=== PATIENT | female | born 1930 | race Two or more races ===

== ENCOUNTER 2018-12-04 12:44 | Inpatient (IN) | payer MEDICARE, OTHER ==
[~2018-12-04] VITALS: Ht 154.9 cm; Wt 46.8 kg
[2018-12-04] MEDS ORDERED: BUSP5TAB PO (15:17)
[2018-12-04] MEDS ORDERED: SPIR25TA PO (15:17)
[2018-12-04] MEDS ORDERED: CHOL500016 PO (15:46)
[2018-12-04] MEDS ORDERED: HYDR-2869 PO (15:46)
[2018-12-04] MEDS ORDERED: LORA2ORA8 PO (15:46)
[2018-12-04] MEDS ORDERED: DOCU-109 PO (15:46)
[2018-12-04] MEDS ORDERED: CHOL2000 PO (15:46)
[2018-12-04] MEDS ORDERED: TRAM50TA PO ×2 (15:46)
[2018-12-04] MEDS ORDERED: LISI10TA2 PO (15:46)
[2018-12-04] MEDS ORDERED: IBUP400T18 PO (15:46)
[2018-12-04] MEDS ORDERED: LORA0.5T PO (15:46)
[2018-12-04] MEDS ORDERED: ACET325T9 PO (15:46)
[2018-12-04] MEDS ORDERED: CYAN10002 IM ×3 (16:01)
[2018-12-04 16:26] VITALS: BP 124/66
[2018-12-04] MEDS ORDERED: ACETAMINOPHEN 325 MG TABLET PO PRN ×2 (17:00→17:15)
[2018-12-04] MEDS ORDERED: traMADol 50 MG TABLET PO PRN (17:00)
[2018-12-04] MEDS ORDERED: MAGNESIUM HYDROXIDE 2,400 MG/30 ML ORAL.SUSP. PO PRN (17:15)
[2018-12-04] MEDS ORDERED: MAG HYDROX/AL HYDROX/SIMETH 30 ML ORAL.SUSP PO PRN (17:15)
[2018-12-04] MEDS ORDERED: METHYL SALICYLATE/MENTHOL TOPICAL OINTMENT 29GM TUBE. TP PRN (17:15)
[2018-12-04] MEDS ORDERED: IBUPROFEN 200 MG TABLET PO PRN (17:15)
[2018-12-04] MEDS ORDERED: DOCUSATE SODIUM 100 MG CAPSULE PO PRN (17:15)
[2018-12-04] MEDS ORDERED: LORazepam INTENSOL 2 MG/ML BOTTLE SL PRN (18:00)
--- NOTE | 2018-12-04 18:16 | EKG ---
[address] [address] Test Date: 2018-12-04 Test Time: 17:59:12 Pat Name: NATANAEL NAYLOR Department: Room: [address] [place] [address] Gender: F [employer] Principal: : [id number] Requested By: LEIGH ANN KIRBY Order Number: [id number] Reading MD: Measurements Intervals [place] Rate: 73 P: 4 NH: 176 QRS: 62 QRSD: 156 T: 46 QT: 430 QTc: 478 Interpretive Statements SINUS RHYTHM NON SPECIFIC INTRAVENTRICULAR BLOCK QRS(T) CONTOUR ABNORMALITY CONSISTENT WITH ANTERIOR INFARCT PROBABLY OLD ABNORMAL ECG RI6.02 No previous ECG available for comparison
[2018-12-04] MEDS: traMADol 50 MG TABLET PO SCH (20:11)
[2018-12-04] MEDS: LORazepam 1 MG TABLET PO SCH (20:12)
[2018-12-04] MEDS: busPIRone 5 MG TABLET. PO SCH (20:12)
[2018-12-04 22:01] LABS: BACTERIA,URINE 0 /HPF (0-FEW); BILIRUBIN,URINE NEG (NEG); CLARITY,URINE CLOUDY; COLOR,URINE AMBER; GLUCOSE,URINE NEG (NEG); HYALINE CASTS, URINE OCC /HPF; NITRITE,URINE NEG (NEG); RBC,URINE 0 /HPF (0-2); SQUAMOUS EPITHELIAL CELL,UR OCC /LPF; UROBILINOGEN,URINE 4 mg/dL (0.2 mg/dL); WBC,URINE 0 /HPF (0-4)
--- NOTE | 2018-12-04 22:31 | PDOC ---
Exam Note: Bassam Note: Please also refer to the separate dictated note~for this date of service dictated separately. Discussed with Nursing staff reviewed the chart.~Reviewed interim history and current functioning. Reviewed vital signs,~Labs/ Radiology~and current medications noted below. Continue current treatment with the changes noted in the dictated addendum note Assessment: Vital Signs/I&O: Vital Signs Date Time Temp Pulse Resp B/P (MAP) Pulse Ox O2 Delivery O2 Flow Rate FiO2 12/04/18 20:12 69 124/66 12/04/18 20:11 18 Room Air 12/04/18 16:26 98.0 93 Labs: Laboratory Tests Test 12/04/18 21:41 Urine Collection Type Unknown Urine Color Adriana Urine Clarity Cloudy Urine pH 5.5 Urine Specific [place] >=1.030 Urine Protein 30 mg/dl (NEG-TRACE) Urine Glucose (UA) Neg mg/dL (NEG) Urine Ketones (Stick) 15 mg/dL (NEG) Urine Blood Neg (NEG) Urine Nitrite Neg (NEG) Urine Bilirubin Neg (NEG) Urine Urobilinogen Dipstick 4 mg/dL (0.2 mg/dL) Urine Leukocyte Esterase Neg (NEG) Urine RBC 0 /HPF (0-2) Urine WBC 0 /HPF (0-4) Urine Squamous Epithelial Cells Occ /LPF Urine Bacteria 0 /HPF (0-FEW) Urine Hyaline Casts Occ /HPF Urine Mucus Slight /LPF Current Medications: Meds: Current Medications Medications (Trade) Dose Ordered Sig/Chilo Route PRN Reason Start Time Stop Time Status Last Admin Dose Admin Tramadol HCl (Ultram) 50 mg BID PO 12/04/18 21:00 12/04/18 20:11 Hydralazine HCl (Apresoline) 50 mg TID PO 12/04/18 21:00 12/04/18 20:12 Buspirone HCl (Buspar) 5 mg TID PO 12/04/18 21:00 12/04/18 20:12 Lorazepam (Ativan) 1 mg BID PO 12/04/18 21:00 12/04/18 20:12 I have reviewed the current psychotropics carefully including drug interactions. Risk benefit ratio favors no change other than as noted in my dictated progress note. Diagnosis: Problems: (1) Anxiety disorder (2) Dementia, vascular, with delusions (3) Dementia, vascular, with depression (4) Dementia in Alzheimer's disease with delusions (5) Dementia in Alzheimer's disease with depression (6) Impulse control disorder LEIGH ANN KIRBY MD Dec 04, 2018 22:31
[2018-12-05 06:05] VITALS: BP 105/64
[2018-12-05 07:37] LABS: BASO # 0.1 x10^3/uL (0.0-0.2); BASO % 1 % (0-3); EOS # 0.7 x10^3/uL (0.0-0.7); EOS % 7 % (0-3); HEMATOCRIT 31.6 % (36.0-47.0); HEMOGLOBIN 10.3 g/dL (12.0-15.5); LYMPH # 3.2 x10^3/uL (1.0-4.8); LYMPH % 32 % (24-48); MEAN CORPUSCULAR HEMOGLOBIN 30 pg (25-35); MEAN CORPUSCULAR HGB CONC 33 g/dL (31-37); MEAN CORPUSCULAR VOLUME 91 fL (79-100); MONO # 1.1 x10^3/uL (0.0-1.1); MONO % 11 % (0-9); NEUT % 50 % (31-73); PLATELET COUNT 264 x10^3/uL (140-400); RED BLOOD COUNT 3.47 x10^6/uL (3.50-5.40); RED CELL DISTRIBUTION WIDTH 14.9 % (11.5-14.5); WHITE BLOOD COUNT 10.1 x10^3/uL (4.0-11.0)
[2018-12-05 07:42] LABS: ALBUMIN 2.9 g/dL (3.4-5.0); ALBUMIN/GLOBULIN RATIO 0.9 (1.0-1.7); CALCIUM 8.8 mg/dL (8.5-10.1); CREATININE 0.7 mg/dL (0.6-1.0); GFR 79.3; MAGNESIUM 1.7 mg/dL (1.8-2.4); POTASSIUM 3.8 mmol/L (3.5-5.1); TOTAL BILIRUBIN 0.3 mg/dL (0.2-1.0)
[2018-12-05] MEDS: CYANOCOBALAMIN (VITAMIN B-12) 1,000 MCG/ML VIAL IM SCH ×2 (09:00→09:14)
[2018-12-05] MEDS: LISINOPRIL 10 MG TABLET PO SCH (09:13)
[2018-12-05] MEDS: CHOLECALCIFEROL (VITAMIN D3) 1,000 UNIT TABLET PO SCH (09:14)
[2018-12-05] MEDS: busPIRone 5 MG TABLET. PO SCH ×3 (09:14→20:54)
[2018-12-05] MEDS: SPIRONOLACTONE 25 MG TABLET PO SCH (09:15)
[2018-12-05] MEDS: LORazepam 1 MG TABLET PO SCH (09:18)
[2018-12-05] MEDS: traMADol 50 MG TABLET PO SCH ×2 (09:18→20:54)
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
--- NOTE | 2018-12-05 15:31 | RAD ---
Examination: CT HEAD WO CONTRAST History: Mental status change Comparison/Correlation: None Findings: Atrophy is present. Ventriculomegaly is present and may represent volume loss. No intracranial hemorrhage, midline shift, or mass effect. Old left external capsular lacunar small old lacunar infarct involving the left basal ganglia near the genu is evident. Cavernous carotid calcifications noted. No depressed fracture. No bony destruction. Impression: Ventriculomegaly which may represent volume loss. Correlate for possibly normal pressure hydrocephalus. PQRS Compliance Statement: One or more of the following individualized dose reduction techniques were utilized for this examination: 1. Automated exposure control 2. Adjustment of the mA and/or kV according to patient size 3. Use of iterative reconstruction technique Electronically signed by: Ho Jack MD (12/05/2018 3:28 PM) [facility]
[2018-12-05 15:37] LABS: THYROID STIM HORMONE (TSH) 4.342 uIU/mL (0.358-3.740)
[2018-12-05 16:05] VITALS: BP 148/81
[2018-12-05] MEDS: LORazepam INTENSOL 2 MG/ML BOTTLE SL PRN (17:01)
[2018-12-05] MEDS ORDERED: METHENAMINE PO PRN (20:00)
[2018-12-05] MEDS ORDERED: SODIUM SALICYLATE PO PRN (20:00)
[2018-12-05] MEDS ORDERED: ABH TP (20:12)
[2018-12-05] MEDS ORDERED: METH1TAB PO (20:14)
[2018-12-05] MEDS: LORazepam 0.5 MG TABLET PO SCH (20:54)
[2018-12-05 21:11] LABS: THYROXINE 7.1 ug/dL (4.5-12.0)
--- NOTE | 2018-12-05 22:33 | PDOC ---
Exam Note: Bassam Note: Please also refer to the separate dictated note~for this date of service dictated separately.~Patient seen individually. Discussed the patient with Nursing staff reviewed the chart.~Reviewed interim history and current functioning. Reviewed vital signs,~Labs/ Radiology~and current medications noted below. Continue current treatment with the changes noted in the dictated addendum note Assessment: Vital Signs/I&O: Vital Signs Date Time Temp Pulse Resp B/P (MAP) Pulse Ox O2 Delivery O2 Flow Rate FiO2 12/05/18 20:54 72 148/81 12/05/18 20:54 18 Room Air 12/05/18 16:05 97.8 95 I & O 12/04/18 12/04/18 12/05/18 14:59 22:59 06:59 Intake Total 420 ml Balance 420 ml Labs: Laboratory Tests Test 12/05/18 06:50 White Blood Count 10.1 x10^3/uL (4.0-11.0) Red Blood Count 3.47 x10^6/uL (3.50-5.40) L Hemoglobin 10.3 g/dL (12.0-15.5) L Hematocrit 31.6 % (36.0-47.0) L Mean Corpuscular Volume 91 fL (79-100) Mean Corpuscular Hemoglobin 30 pg (25-35) Mean Corpuscular Hemoglobin Concent 33 g/dL (31-37) Red Cell Distribution Width 14.9 % (11.5-14.5) H Platelet Count 264 x10^3/uL (140-400) Neutrophils (%) (Auto) 50 % (31-73) Lymphocytes (%) (Auto) 32 % (24-48) Monocytes (%) (Auto) 11 % (0-9) H Eosinophils (%) (Auto) 7 % (0-3) H Basophils (%) (Auto) 1 % (0-3) Neutrophils # (Auto) 5.0 x10^3uL (1.8-7.7) Lymphocytes # (Auto) 3.2 x10^3/uL (1.0-4.8) Monocytes # (Auto) 1.1 x10^3/uL (0.0-1.1) Eosinophils # (Auto) 0.7 x10^3/uL (0.0-0.7) Basophils # (Auto) 0.1 x10^3/uL (0.0-0.2) Sodium Level 141 mmol/L (136-145) Potassium Level 3.8 mmol/L (3.5-5.1) Chloride Level 105 mmol/L (98-107) Carbon Dioxide Level 27 mmol/L (21-32) Anion Gap 9 (6-14) Blood Urea Nitrogen 24 mg/dL (7-20) H Creatinine 0.7 mg/dL (0.6-1.0) Estimated GFR (Cockcroft-Gault) 79.3 BUN/Creatinine Ratio 34 (6-20) H Glucose Level 84 mg/dL (70-99) Calcium Level 8.8 mg/dL (8.5-10.1) Magnesium Level 1.7 mg/dL (1.8-2.4) L Iron Level 47 ug/dL (50-170) L Total Iron Binding Capacity 153 ug/dL (250-450) L Iron Saturation 31 % (15-34) Total Bilirubin 0.3 mg/dL (0.2-1.0) Aspartate Amino Transferase (AST) 11 U/L (15-37) L Alanine Aminotransferase (ALT) 17 U/L (14-59) Alkaline Phosphatase 44 U/L (46-116) L Total Protein 6.0 g/dL (6.4-8.2) L Albumin 2.9 g/dL (3.4-5.0) L Albumin/Globulin Ratio 0.9 (1.0-1.7) L Triglycerides Level 54 mg/dL (0-150) Cholesterol Level 164 mg/dL (0-200) LDL Cholesterol, Calculated 113 mg/dL (0-100) H VLDL Cholesterol, Calculated 10 mg/dL (0-40) Non-HDL Cholesterol Calculated 123 mg/dL (0-129) HDL Cholesterol 41 mg/dL (40-60) Cholesterol/HDL Ratio 4.0 25-Hydroxy Vitamin D Total 21.7 ng/mL (30-100) L Thyroid Stimulating Hormone (TSH) 4.342 uIU/mL (0.358-3.740) Thyroxine (T4) 7.1 ug/dL (4.5-12.0) Total Triiodothyronine (TT3) 89 ng/dL (71-180) Treponema pallidum Antibody Nonreactive (Nonreactive) Current Medications: Meds: Current Medications Medications (Trade) Dose Ordered Sig/Chilo Route PRN Reason Start Time Stop Time Status Last Admin Dose Admin Lisinopril (Prinivil) 10 mg DAILY PO 12/05/18 09:00 12/05/18 09:13 Vitamin D (Vitamin D3) 2,000 unit DAILY PO 12/05/18 09:00 12/05/18 09:14 Spironolactone (Aldactone) 25 mg DAILY PO 12/05/18 09:00 12/05/18 09:15 Lorazepam (Ativan) 0.5 mg TID PO 12/05/18 21:00 12/07/18 23:50 12/05/18 20:54 I have reviewed the current psychotropics carefully including drug interactions. Risk benefit ratio favors no change other than as noted in my dictated progress note. Diagnosis: Problems: (1) Anxiety disorder (2) Dementia, vascular, with delusions (3) Dementia, vascular, with depression (4) Dementia in Alzheimer's disease with delusions (5) Dementia in Alzheimer's disease with depression (6) Impulse control disorder LEIGH ANN KIRBY MD Dec 05, 2018 22:33
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
[2018-12-06 02:44] LABS: HEMOGLOBIN A1C 5.1 % (4.8-5.6)
[2018-12-06 06:04] VITALS: BP 106/60
[2018-12-06 08:19] VITALS: BP 149/69
[2018-12-06] MEDS: CYANOCOBALAMIN (VITAMIN B-12) 1,000 MCG/ML VIAL IM SCH (08:21)
[2018-12-06] MEDS: SPIRONOLACTONE 25 MG TABLET PO SCH (08:22)
[2018-12-06] MEDS: LORazepam 0.5 MG TABLET PO SCH ×3 (08:26→19:24)
[2018-12-06] MEDS: busPIRone 5 MG TABLET. PO SCH ×3 (08:27→19:24)
[2018-12-06] MEDS: LISINOPRIL 10 MG TABLET PO SCH (08:27)
[2018-12-06] MEDS: CHOLECALCIFEROL (VITAMIN D3) 1,000 UNIT TABLET PO SCH (08:28)
[2018-12-06] MEDS: QUEtiapine 25 MG TABLET. PO SCH ×2 (08:32→16:43)
[2018-12-06] MEDS: traMADol 50 MG TABLET PO SCH ×2 (08:33→19:18)
[2018-12-06] MEDS: SERTRALINE 25 MG TABLET. PO SCH (08:33)
[2018-12-06 15:25] VITALS: BP 123/63
--- NOTE | 2018-12-06 22:58 | PDOC ---
Exam Note: Bassam Note: Please also refer to the separate dictated note~for this date of service dictated separately.~Patient seen individually. Discussed the patient with Nursing staff reviewed the chart.~Reviewed interim history and current functioning. Reviewed vital signs,~Labs/ Radiology~and current medications noted below. Continue current treatment with the changes noted in the dictated addendum note Assessment: Vital Signs/I&O: Vital Signs Date Time Temp Pulse Resp B/P (MAP) Pulse Ox O2 Delivery O2 Flow Rate FiO2 12/06/18 22:04 18 Room Air 12/06/18 19:24 82 141/65 12/06/18 15:25 97.6 96 I & O 12/05/18 12/05/18 12/06/18 15:00 23:00 07:00 Intake Total 240 ml 240 ml Balance 240 ml 240 ml Current Medications: Meds: Current Medications Medications (Trade) Dose Ordered Sig/Chilo Route PRN Reason Start Time Stop Time Status Last Admin Dose Admin Sertraline HCl (Zoloft) 25 mg DAILY PO 12/06/18 09:00 12/06/18 08:33 Quetiapine Fumarate (SEROquel) 12.5 mg 0900,1700 PO 12/06/18 09:00 12/06/18 16:43 I have reviewed the current psychotropics carefully including drug interactions. Risk benefit ratio favors no change other than as noted in my dictated progress note. Diagnosis: Problems: (1) Anxiety disorder (2) Dementia, vascular, with delusions (3) Dementia, vascular, with depression (4) Dementia in Alzheimer's disease with delusions (5) Dementia in Alzheimer's disease with depression (6) Impulse control disorder LEIGH ANN KIRBY MD Dec 06, 2018 22:58
--- NOTE | 2018-12-07 00:14 | PN ---
DATE: 12/05/2018 PSYCHIATRIC PROGRESS NOTE This late entry 12/05/2018, covers elements not covered in my initial note. SUBJECTIVE: I met with the patient at some length in the evening. The patient slept 6-3/4 hours previous night. She has done reasonably during the day, remains confused, and believes she just came here from [place] directly. She was somewhat agitated in the morning with marked mood lability previous night and during the day, withdrawn to her room. Around 5:00 p.m., she became agitated, anxious, and restless. REVIEW OF SYSTEMS: Ambulation impaired, in wheelchair. No CV, , pulmonary, eye, ENT system symptoms on review. Reliability poor. MENTAL STATUS EXAM: Oriented to herself. Insight, judgment, recent and remote memory, attention, concentration, fund of knowledge poor, consistent with her diagnoses. IMPRESSION: Major neurocognitive disorder, Alzheimer, vascular with delusion, depression, behavioral disturbance; anxiety disorder, unspecified; impulse control disorder, unspecified. PLAN: The patient used to ambulate independently. Since she has been on Ativan and during that time, she was on hospice care, her ambulation has impaired. We will go ahead and taper the Ativan down from 1 mg b.i.d. to 0.5 mg t.i.d. for 3 days, then 0.5 mg b.i.d. for 3 days, then 0.5 mg once a day for 3 days and stop it. We will start Seroquel 12.5 mg 9 a.m. and 5 p.m. as a mood stabilizer and Zoloft 25 mg a day. Maintain BuSpar 5 mg 3 times a day along with Ativan p.r.n. for now. MAN Rigo KIRBY MD DR: LUIS/kristen JOB#: [id number] / [id number]
[2018-12-07 05:53] VITALS: BP 128/65
[2018-12-07] MEDS: CHOLECALCIFEROL (VITAMIN D3) 1,000 UNIT TABLET PO SCH (10:18)
[2018-12-07] MEDS: SPIRONOLACTONE 25 MG TABLET PO SCH (10:19)
[2018-12-07] MEDS: QUEtiapine 25 MG TABLET. PO SCH ×2 (10:19→17:31)
[2018-12-07] MEDS: SERTRALINE 25 MG TABLET. PO SCH (10:20)
[2018-12-07] MEDS: CYANOCOBALAMIN (VITAMIN B-12) 1,000 MCG/ML VIAL IM SCH (10:20)
[2018-12-07] MEDS: LISINOPRIL 10 MG TABLET PO SCH (10:20)
[2018-12-07] MEDS: busPIRone 5 MG TABLET. PO SCH ×3 (10:20→19:22)
[2018-12-07] MEDS: LORazepam 0.5 MG TABLET PO SCH ×3 (10:27→19:22)
[2018-12-07] MEDS: traMADol 50 MG TABLET PO SCH ×2 (10:27→19:22)
[2018-12-07] MEDS: LORazepam INTENSOL 2 MG/ML BOTTLE SL PRN (11:59)
[2018-12-07 15:50] VITALS: BP 128/72
--- NOTE | 2018-12-07 22:37 | PDOC ---
Exam Note: Bassam Note: Please also refer to the separate dictated note~for this date of service dictated separately.~Patient seen individually. Discussed the patient with Nursing staff reviewed the chart.~Reviewed interim history and current functioning. Reviewed vital signs,~Labs/ Radiology~and current medications noted below. Continue current treatment with the changes noted in the dictated addendum note Assessment: Vital Signs/I&O: Vital Signs Date Time Temp Pulse Resp B/P (MAP) Pulse Ox O2 Delivery O2 Flow Rate FiO2 12/07/18 20:22 96 Room Air 12/07/18 19:21 82 128/72 12/07/18 15:50 98.3 18 I & O 12/06/18 12/06/18 12/07/18 15:00 23:00 07:00 Intake Total 720 ml 120 ml Balance 720 ml 120 ml Current Medications: I have reviewed the current psychotropics carefully including drug interactions. Risk benefit ratio favors no change other than as noted in my dictated progress note. Diagnosis: Problems: (1) Anxiety disorder (2) Dementia, vascular, with delusions (3) Dementia, vascular, with depression (4) Dementia in Alzheimer's disease with delusions (5) Dementia in Alzheimer's disease with depression (6) Impulse control disorder LEIGH ANN KIRBY MD Dec 07, 2018 22:37
[2018-12-08 05:48] VITALS: BP 134/67
[2018-12-08] MEDS: CHOLECALCIFEROL (VITAMIN D3) 1,000 UNIT TABLET PO SCH (08:28)
[2018-12-08] MEDS: busPIRone 5 MG TABLET. PO SCH ×3 (08:28→19:16)
[2018-12-08] MEDS: SPIRONOLACTONE 25 MG TABLET PO SCH (08:28)
[2018-12-08] MEDS: SERTRALINE 25 MG TABLET. PO SCH (08:29)
[2018-12-08] MEDS: QUEtiapine 25 MG TABLET. PO SCH ×2 (08:29→15:31)
[2018-12-08] MEDS: LISINOPRIL 10 MG TABLET PO SCH (08:29)
[2018-12-08] MEDS: CYANOCOBALAMIN (VITAMIN B-12) 1,000 MCG/ML VIAL IM SCH ×2 (08:30→10:21)
[2018-12-08] MEDS: traMADol 50 MG TABLET PO SCH ×2 (08:32→19:18)
[2018-12-08] MEDS: LORazepam 0.5 MG TABLET PO SCH ×2 (08:32→19:18)
--- NOTE | 2018-12-08 13:00 | PN ---
DATE: 12/06/2018 PSYCHIATRIC PROGRESS NOTE This late entry 12/06/2018 covers elements not covered in my initial note. SUBJECTIVE: I met with the patient in the evening and staffed at a treatment team meeting with the entire team earlier in the day and the patient's daughter, Sarah, attended the conference. Appetite 100%, slept 6-3/4 hours. Reviewed her history of progressive confusion. She had been on hospice care in the past, but then removed from it as she improved medically. REVIEW OF SYSTEMS: Ambulation impaired, in wheelchair. No CV, , pulmonary, eye, ENT system symptoms on review. MENTAL STATUS EXAM: Oriented to herself. Insight, judgment, recent and remote memory, attention, concentration, fund of knowledge poor, consistent with her diagnosis mentioned in my initial note. PLAN: No change from initial note. MAN Rigo KIRBY MD DR: LUIS/kristen JOB#: [id number] / [id number]
[2018-12-08 16:12] VITALS: BP 113/58
--- NOTE | 2018-12-08 19:25 | PN ---
DATE: 12/07/2018 PSYCHIATRIC PROGRESS NOTE This late entry 12/07/2018 covers elements not covered in my initial note. SUBJECTIVE: I met with the patient evening of 12/07/2018. The patient slept 6-1/4 hours previous night. She sat herself on the floor in the evening, but no injury noted. Refused p.m. medications, wanted out of the day room, anxious, restless, constantly moving in her wheelchair, quite obsessive, somewhat paranoid, wanting to know if her purse was in safekeeping. REVIEW OF SYSTEMS: No CV, , pulmonary, eye, ENT system symptoms on review. Reliability poor. MENTAL STATUS EXAM: Oriented to herself. Insight, judgment, recent and remote memory, attention, concentration, fund of knowledge poor, consistent with her diagnosis mentioned in my initial note. PLAN: No change from initial note. We have initiated Seroquel, remains on Zoloft, Ativan has been tapered. May need to increase Zoloft. Continue BuSpar 5 mg t.i.d., Ativan liquid p.r.n. MAN Rigo KIRBY MD DR: LUIS/kristen JOB#: [id number] / [id number]
--- NOTE | 2018-12-08 22:09 | PDOC ---
Exam Note: Bassam Note: Please also refer to the separate dictated note~for this date of service dictated separately.~Patient seen individually. Discussed the patient with Nursing staff reviewed the chart.~Reviewed interim history and current functioning. Reviewed vital signs,~Labs/ Radiology~and current medications noted below. Continue current treatment with the changes noted in the dictated addendum note Assessment: Vital Signs/I&O: Vital Signs Date Time Temp Pulse Resp B/P (MAP) Pulse Ox O2 Delivery O2 Flow Rate FiO2 12/08/18 20:18 96 Room Air 12/08/18 19:16 78 113/58 12/08/18 16:12 98.6 16 I & O 12/07/18 12/07/18 12/08/18 14:59 22:59 06:59 Intake Total 240 ml 240 ml 120 ml Balance 240 ml 240 ml 120 ml Current Medications: Meds: Current Medications Medications (Trade) Dose Ordered Sig/Chilo Route PRN Reason Start Time Stop Time Status Last Admin Dose Admin Lorazepam (Ativan) 0.5 mg BID PO 12/08/18 09:00 12/10/18 23:50 12/08/18 19:18 I have reviewed the current psychotropics carefully including drug interactions. Risk benefit ratio favors no change other than as noted in my dictated progress note. Diagnosis: Problems: (1) Anxiety disorder (2) Dementia, vascular, with delusions (3) Dementia, vascular, with depression (4) Dementia in Alzheimer's disease with delusions (5) Dementia in Alzheimer's disease with depression (6) Impulse control disorder LEIGH ANN KIRBY MD Dec 08, 2018 22:09
[2018-12-09 06:04] VITALS: BP 135/69
[2018-12-09] MEDS: QUEtiapine 25 MG TABLET. PO SCH ×2 (07:32→16:45)
[2018-12-09] MEDS: CYANOCOBALAMIN (VITAMIN B-12) 1,000 MCG/ML VIAL IM SCH ×2 (07:32→16:44)
[2018-12-09] MEDS: SPIRONOLACTONE 25 MG TABLET PO SCH (07:32)
[2018-12-09] MEDS: CHOLECALCIFEROL (VITAMIN D3) 1,000 UNIT TABLET PO SCH (07:35)
[2018-12-09] MEDS: LISINOPRIL 10 MG TABLET PO SCH (07:36)
[2018-12-09] MEDS: busPIRone 5 MG TABLET. PO SCH ×4 (07:39→20:29)
[2018-12-09] MEDS: LORazepam 0.5 MG TABLET PO SCH ×2 (07:43→20:22)
[2018-12-09] MEDS: traMADol 50 MG TABLET PO SCH ×3 (07:45→20:29)
[2018-12-09] MEDS: SERTRALINE 50 MG TABLET. PO SCH (07:47)
[2018-12-09] MEDS: LORazepam INTENSOL 2 MG/ML BOTTLE SL PRN (13:37)
[2018-12-09 15:50] VITALS: BP 109/59
[2018-12-09] MEDS ORDERED: ONDANSETRON PF 4 MG/2 ML VIAL. IV PRN (19:00)
[2018-12-09 19:09] LABS: BASO # 0.1 x10^3/uL (0.0-0.2); BASO % 1 % (0-3); EOS # 0.8 x10^3/uL (0.0-0.7); EOS % 6 % (0-3); HEMOGLOBIN 11.2 g/dL (12.0-15.5); LYMPH # 3.1 x10^3/uL (1.0-4.8); LYMPH % 23 % (24-48); MEAN CORPUSCULAR HEMOGLOBIN 30 pg (25-35); MEAN CORPUSCULAR HGB CONC 32 g/dL (31-37); MEAN CORPUSCULAR VOLUME 92 fL (79-100); MONO # 1.3 x10^3/uL (0.0-1.1); MONO % 9 % (0-9); NEUT # 8.4 x10^3uL (1.8-7.7); NEUT % 61 % (31-73); PLATELET COUNT 287 x10^3/uL (140-400); RED CELL DISTRIBUTION WIDTH 15.3 % (11.5-14.5); WHITE BLOOD COUNT 13.6 x10^3/uL (4.0-11.0)
[2018-12-09 19:27] LABS: ALBUMIN 3.7 g/dL (3.4-5.0); ALBUMIN/GLOBULIN RATIO 1.1 (1.0-1.7); CALCIUM 9.7 mg/dL (8.5-10.1); CREATININE 0.9 mg/dL (0.6-1.0); GFR 59.4; POTASSIUM 4.2 mmol/L (3.5-5.1); TOTAL BILIRUBIN 0.4 mg/dL (0.2-1.0); TOTAL PROTEIN 7.1 g/dL (6.4-8.2)
--- NOTE | 2018-12-09 19:29 | RAD ---
KUB History: Nausea, vomiting, abdominal pain Comparison: None. Findings: Single supine AP view of abdomen is submitted. Exam is insufficient for the evaluation for free air. There is a greater degree of retained stool in the right colon. No convincing gas dilated small bowel is identified. There are 3 cannulated screws of the proximal left femur. There has been median sternotomy, note also made of electronic cardiac leads. Impression: 1. There is retained stool greater of the right colon. No gas dilated small bowel is identified. Electronically signed by: Carlos Pack MD (12/09/2018 7:25 PM) [facility]
[2018-12-09 20:17] VITALS: BP 146/65
--- NOTE | 2018-12-09 22:49 | PDOC ---
Exam Note: Bassam Note: Please also refer to the separate dictated note~for this date of service dictated separately.~Patient seen individually. Discussed the patient with Nursing staff reviewed the chart.~Reviewed interim history and current functioning. Reviewed vital signs,~Labs/ Radiology~and current medications noted below. Continue current treatment with the changes noted in the dictated addendum note Assessment: Vital Signs/I&O: Vital Signs Date Time Temp Pulse Resp B/P (MAP) Pulse Ox O2 Delivery O2 Flow Rate FiO2 12/09/18 20:29 18 100 Room Air 12/09/18 20:19 88 146/65 12/09/18 20:17 98.9 I & O 12/08/18 12/08/18 12/09/18 15:00 23:00 07:00 Intake Total 360 ml 480 ml Balance 360 ml 480 ml Labs: Laboratory Tests Test 12/09/18 19:02 White Blood Count 13.6 x10^3/uL (4.0-11.0) H Red Blood Count 3.80 x10^6/uL (3.50-5.40) Hemoglobin 11.2 g/dL (12.0-15.5) L Hematocrit 35.0 % (36.0-47.0) L Mean Corpuscular Volume 92 fL (79-100) Mean Corpuscular Hemoglobin 30 pg (25-35) Mean Corpuscular Hemoglobin Concent 32 g/dL (31-37) Red Cell Distribution Width 15.3 % (11.5-14.5) H Platelet Count 287 x10^3/uL (140-400) Neutrophils (%) (Auto) 61 % (31-73) Lymphocytes (%) (Auto) 23 % (24-48) L Monocytes (%) (Auto) 9 % (0-9) Eosinophils (%) (Auto) 6 % (0-3) H Basophils (%) (Auto) 1 % (0-3) Neutrophils # (Auto) 8.4 x10^3uL (1.8-7.7) H Lymphocytes # (Auto) 3.1 x10^3/uL (1.0-4.8) Monocytes # (Auto) 1.3 x10^3/uL (0.0-1.1) H Eosinophils # (Auto) 0.8 x10^3/uL (0.0-0.7) H Basophils # (Auto) 0.1 x10^3/uL (0.0-0.2) Sodium Level 138 mmol/L (136-145) Potassium Level 4.2 mmol/L (3.5-5.1) Chloride Level 102 mmol/L (98-107) Carbon Dioxide Level 31 mmol/L (21-32) Anion Gap 5 (6-14) L Blood Urea Nitrogen 24 mg/dL (7-20) H Creatinine 0.9 mg/dL (0.6-1.0) Estimated GFR (Cockcroft-Gault) 59.4 BUN/Creatinine Ratio 27 (6-20) H Glucose Level 117 mg/dL (70-99) H Calcium Level 9.7 mg/dL (8.5-10.1) Total Bilirubin 0.4 mg/dL (0.2-1.0) Aspartate Amino Transferase (AST) 12 U/L (15-37) L Alanine Aminotransferase (ALT) 21 U/L (14-59) Alkaline Phosphatase 53 U/L (46-116) Lactate Dehydrogenase 183 U/L (81-234) VD-Mwf-E-Type Natriuretic Peptide 489 pg/mL (0-449) H Total Protein 7.1 g/dL (6.4-8.2) Albumin 3.7 g/dL (3.4-5.0) Albumin/Globulin Ratio 1.1 (1.0-1.7) Current Medications: Meds: Current Medications Medications (Trade) Dose Ordered Sig/Chilo Route PRN Reason Start Time Stop Time Status Last Admin Dose Admin Sertraline HCl (Zoloft) 50 mg DAILY PO 12/09/18 09:00 12/09/18 07:47 Olanzapine (ZyPREXA ZYDIS) 2.5 mg PRN Q2HR PRN PO PSYCHOSIS 12/09/18 10:00 12/09/18 13:33 I have reviewed the current psychotropics carefully including drug interactions. Risk benefit ratio favors no change other than as noted in my dictated progress note. Diagnosis: Problems: (1) Anxiety disorder (2) Dementia, vascular, with delusions (3) Dementia, vascular, with depression (4) Dementia in Alzheimer's disease with delusions (5) Dementia in Alzheimer's disease with depression (6) Impulse control disorder LEGIH ANN KIRBY MD Dec 09, 2018 22:49
[2018-12-10 05:36] VITALS: BP 143/57
[2018-12-10] MEDS: QUEtiapine 25 MG TABLET. PO SCH ×2 (07:25→16:30)
[2018-12-10] MEDS: LISINOPRIL 10 MG TABLET PO SCH (07:27)
[2018-12-10] MEDS: busPIRone 5 MG TABLET. PO SCH ×3 (07:28→20:02)
[2018-12-10] MEDS: SERTRALINE 50 MG TABLET. PO SCH (07:28)
[2018-12-10] MEDS: SPIRONOLACTONE 25 MG TABLET PO SCH (07:29)
[2018-12-10] MEDS: CHOLECALCIFEROL (VITAMIN D3) 1,000 UNIT TABLET PO SCH (07:29)
[2018-12-10] MEDS: LORazepam 0.5 MG TABLET PO SCH ×2 (07:34→07:39)
[2018-12-10] MEDS: traMADol 50 MG TABLET PO SCH ×3 (07:43→21:00)
[2018-12-10] MEDS: ACETAMINOPHEN 325 MG TABLET PO PRN (14:36)
[2018-12-10 16:11] VITALS: BP 115/63
[2018-12-10] MEDS: LORazepam INTENSOL 2 MG/ML BOTTLE SL PRN ×2 (17:05→23:53)
[2018-12-10 21:04] LABS: BASO # 0.1 x10^3/uL (0.0-0.2); BASO % 1 % (0-3); EOS # 0.7 x10^3/uL (0.0-0.7); EOS % 6 % (0-3); HEMATOCRIT 33.5 % (36.0-47.0); HEMOGLOBIN 10.9 g/dL (12.0-15.5); LYMPH # 1.9 x10^3/uL (1.0-4.8); LYMPH % 15 % (24-48); MEAN CORPUSCULAR HEMOGLOBIN 30 pg (25-35); MEAN CORPUSCULAR HGB CONC 33 g/dL (31-37); MEAN CORPUSCULAR VOLUME 92 fL (79-100); MONO # 1.5 x10^3/uL (0.0-1.1); MONO % 13 % (0-9); NEUT % 65 % (31-73); PLATELET COUNT 270 x10^3/uL (140-400); RED BLOOD COUNT 3.64 x10^6/uL (3.50-5.40); RED CELL DISTRIBUTION WIDTH 14.6 % (11.5-14.5); WHITE BLOOD COUNT 12.2 x10^3/uL (4.0-11.0)
[2018-12-10 21:09] LABS: CALCIUM 9.8 mg/dL (8.5-10.1); CREATININE 0.8 mg/dL (0.6-1.0); POTASSIUM 3.8 mmol/L (3.5-5.1)
--- NOTE | 2018-12-10 21:51 | PN ---
DATE: 12/08/2018 This late entry 12/08/2018 covers elements not covered in my initial note. SUBJECTIVE: I met with the patient in the evening of 12/08/2018. Overall, the patient slept 7-1/2 hours, has been more social with peers, does have a new splint to the left wrist, compliant with medications, somewhat demanding at night. REVIEW OF SYSTEMS: Ambulation impaired, in wheelchair. No CV, , pulmonary, eye, ENT system symptoms on review. Reliability poor. MENTAL STATUS EXAM: Oriented to herself. Insight, judgment, recent and remote memory, attention, concentration, fund of knowledge poor, consistent with her diagnosis mentioned in my initial note. PLAN: Increase Zoloft from 25 mg a day to 50 mg a day. Continue rest unchanged. MAN Rigo KIRBY MD DR: LUIS/kristen JOB#: [id number] / [id number]
--- NOTE | 2018-12-10 21:54 | PN ---
DATE: 12/09/2018 PSYCHIATRIC PROGRESS NOTE This late entry 12/09/2018 covers elements not covered in my initial note. SUBJECTIVE: The patient was agitated in the morning and around lunchtime. Slept after lunch. She was sick previous night due to eating rapidly, and I have suggested to nursing staff to split her meal in half and only present her one-half at each time. Dr. Park was consulted on this. She remains in a wheelchair. REVIEW OF SYSTEMS: No other overt review of system symptoms noted. MENTAL STATUS EXAM: Oriented to herself. Insight, judgment, recent and remote memory, attention, concentration, fund of knowledge poor, consistent with her diagnosis mentioned in my initial note. PLAN: No change from initial note. MAN Rigo KIRBY MD DR: LUIS/kristen JOB#: [id number] / [id number]
--- NOTE | 2018-12-10 22:31 | PDOC ---
Exam Note: Bassam Note: Please also refer to the separate dictated note~for this date of service dictated separately.~Patient seen individually. Discussed the patient with Nursing staff reviewed the chart.~Reviewed interim history and current functioning. Reviewed vital signs,~Labs/ Radiology~and current medications noted below. Continue current treatment with the changes noted in the dictated addendum note Assessment: Vital Signs/I&O: Vital Signs Date Time Temp Pulse Resp B/P (MAP) Pulse Ox O2 Delivery O2 Flow Rate FiO2 12/10/18 20:02 87 115/63 12/10/18 16:11 99.4 18 94 12/10/18 09:23 Room Air I & O 12/09/18 12/09/18 12/10/18 14:59 22:59 06:59 Intake Total 240 ml 360 ml Balance 240 ml 360 ml Labs: Laboratory Tests Test 12/10/18 20:35 12/10/18 20:45 White Blood Count 12.2 x10^3/uL (4.0-11.0) H Red Blood Count 3.64 x10^6/uL (3.50-5.40) Hemoglobin 10.9 g/dL (12.0-15.5) L Hematocrit 33.5 % (36.0-47.0) L Mean Corpuscular Volume 92 fL (79-100) Mean Corpuscular Hemoglobin 30 pg (25-35) Mean Corpuscular Hemoglobin Concent 33 g/dL (31-37) Red Cell Distribution Width 14.6 % (11.5-14.5) H Platelet Count 270 x10^3/uL (140-400) Neutrophils (%) (Auto) 65 % (31-73) Lymphocytes (%) (Auto) 15 % (24-48) L Monocytes (%) (Auto) 13 % (0-9) H Eosinophils (%) (Auto) 6 % (0-3) H Basophils (%) (Auto) 1 % (0-3) Neutrophils # (Auto) 8.0 x10^3uL (1.8-7.7) H Lymphocytes # (Auto) 1.9 x10^3/uL (1.0-4.8) Monocytes # (Auto) 1.5 x10^3/uL (0.0-1.1) H Eosinophils # (Auto) 0.7 x10^3/uL (0.0-0.7) Basophils # (Auto) 0.1 x10^3/uL (0.0-0.2) Sodium Level 141 mmol/L (136-145) Potassium Level 3.8 mmol/L (3.5-5.1) Chloride Level 103 mmol/L (98-107) Carbon Dioxide Level 31 mmol/L (21-32) Anion Gap 7 (6-14) Blood Urea Nitrogen 23 mg/dL (7-20) H Creatinine 0.8 mg/dL (0.6-1.0) Estimated GFR (Cockcroft-Gault) 68.0 Glucose Level 108 mg/dL (70-99) H Calcium Level 9.8 mg/dL (8.5-10.1) Current Medications: I have reviewed the current psychotropics carefully including drug interactions. Risk benefit ratio favors no change other than as noted in my dictated progress note. Diagnosis: Problems: (1) Anxiety disorder (2) Dementia, vascular, with delusions (3) Dementia, vascular, with depression (4) Dementia in Alzheimer's disease with delusions (5) Dementia in Alzheimer's disease with depression (6) Impulse control disorder LEIGH ANN KIRBY MD Dec 10, 2018 22:31
[2018-12-11] MEDS: ACETAMINOPHEN 325 MG TABLET PO PRN (00:26)
[2018-12-11 05:44] VITALS: BP 169/75
[2018-12-11] MEDS: FLUTICASONE 50MCG/NASAL SPRAY 16GM BOTTLE. NS SCH ×2 (09:00→11:59)
[2018-12-11] MEDS: SPIRONOLACTONE 25 MG TABLET PO SCH (11:53)
[2018-12-11] MEDS: busPIRone 5 MG TABLET. PO SCH ×3 (11:53→19:57)
[2018-12-11] MEDS: CHOLECALCIFEROL (VITAMIN D3) 1,000 UNIT TABLET PO SCH (11:54)
[2018-12-11] MEDS: QUEtiapine 25 MG TABLET. PO SCH ×2 (11:54→16:49)
[2018-12-11] MEDS: LISINOPRIL 10 MG TABLET PO SCH (11:54)
[2018-12-11] MEDS: SERTRALINE 50 MG TABLET. PO SCH (11:54)
[2018-12-11] MEDS: traMADol 50 MG TABLET PO SCH ×2 (11:59→19:58)
[2018-12-11] MEDS: LORazepam 0.5 MG TABLET PO SCH (11:59)
[2018-12-11] MEDS: CHOLECALCIFEROL (VITAMIN D3) 50,000 UNIT CAPSULE PO SCH (12:00)
[2018-12-11] MEDS: CETIRIZINE HCL 10 MG TABLET PO SCH (12:00)
[2018-12-11 12:42] LABS: BACTERIA,URINE 0 /HPF (0-FEW); BILIRUBIN,URINE NEG (NEG); CLARITY,URINE CLEAR; COLOR,URINE YELLOW; GLUCOSE,URINE NEG (NEG); NITRITE,URINE NEG (NEG); RBC,URINE OCC /HPF (0-2); SQUAMOUS EPITHELIAL CELL,UR FEW /LPF; UROBILINOGEN,URINE 0.2 mg/dL (0.2 mg/dL)
[2018-12-11 15:47] VITALS: BP 110/62
[2018-12-11] MEDS: MIRTAZAPINE 7.5 MG TABLET. PO SCH (19:58)
--- NOTE | 2018-12-11 22:30 | PDOC ---
Exam Note: Bassam Note: Please also refer to the separate dictated note~for this date of service dictated separately.~Patient seen individually. Discussed the patient with Nursing staff reviewed the chart.~Reviewed interim history and current functioning. Reviewed vital signs,~Labs/ Radiology~and current medications noted below. Continue current treatment with the changes noted in the dictated addendum note Assessment: Vital Signs/I&O: Vital Signs Date Time Temp Pulse Resp B/P (MAP) Pulse Ox O2 Delivery O2 Flow Rate FiO2 12/11/18 19:58 18 Room Air 12/11/18 19:57 87 110/62 12/11/18 15:47 98.8 96 I & O 12/10/18 12/10/18 12/11/18 14:59 22:59 06:59 Intake Total 360 ml 120 ml 240 ml Balance 360 ml 120 ml 240 ml Labs: Laboratory Tests Test 12/11/18 11:57 Urine Collection Type Unknown Urine Color Yellow Urine Clarity Clear Urine pH 8.0 Urine Specific Hasty 1.020 Urine Protein Neg (NEG-TRACE) Urine Glucose (UA) Neg mg/dL (NEG) Urine Ketones (Stick) Neg mg/dL (NEG) Urine Blood Neg (NEG) Urine Nitrite Neg (NEG) Urine Bilirubin Neg (NEG) Urine Urobilinogen Dipstick 0.2 mg/dL (0.2 mg/dL) Urine Leukocyte Esterase Neg (NEG) Urine RBC Occ /HPF (0-2) Urine WBC 1-4 /HPF (0-4) Urine Squamous Epithelial Cells Few /LPF Urine Bacteria 0 /HPF (0-FEW) Current Medications: Meds: Current Medications Medications (Trade) Dose Ordered Sig/Chilo Route PRN Reason Start Time Stop Time Status Last Admin Dose Admin Vitamin D (Vitamin D3) 50,000 unit WEEKLY PO 12/11/18 09:00 12/11/18 12:00 Lorazepam (Ativan) 0.5 mg DAILY PO 12/11/18 09:00 12/13/18 23:50 12/11/18 11:59 Cetirizine HCl (ZyrTEC) 10 mg DAILY PO 12/11/18 09:00 12/11/18 12:00 Mirtazapine (Remeron) 7.5 mg QHS PO 12/11/18 21:00 12/11/18 19:58 I have reviewed the current psychotropics carefully including drug interactions. Risk benefit ratio favors no change other than as noted in my dictated progress note. Diagnosis: Problems: (1) Anxiety disorder (2) Dementia, vascular, with delusions (3) Dementia, vascular, with depression (4) Dementia in Alzheimer's disease with delusions (5) Dementia in Alzheimer's disease with depression (6) Impulse control disorder LEIGH ANN KIRBY MD Dec 11, 2018 22:30
--- NOTE | 2018-12-11 23:03 | PN ---
DATE: 12/10/2018 PSYCHIATRIC PROGRESS NOTE This late entry 12/10/2018 covers elements not covered in my initial note. SUBJECTIVE: I met with the patient in the evening. The patient slept 7-3/4 hours previous night. She has had a labile mood. Complains of some runny nose, watery eyes. Takes her medications whole, was somewhat diaphoretic, though temperature was 98.4. We will check a CBC, CMP, UA to make sure she does not have any occult infection. REVIEW OF SYSTEMS: Ambulation impaired, in wheelchair. No CV, , pulmonary, eye, ENT system symptoms on review. Reliability poor. She has to be assisted in feeding at mealtimes. MENTAL STATUS EXAM: Insight, judgment, recent and remote memory, attention, concentration, fund of knowledge poor, consistent with his diagnosis mentioned in my initial note. IMPRESSION: Major neurocognitive disorder; Alzheimer, vascular with delusion; depression; behavioral disturbance; anxiety disorder, unspecified; impulse control disorder, unspecified. PLAN: Check labs as above. Continue rest psychotropics unchanged for now. MAN Rigo KIRBY MD DR: LUIS/kristen JOB#: [id number] / [id number]
[2018-12-12 05:28] VITALS: BP 139/61
[2018-12-12] MEDS: SPIRONOLACTONE 25 MG TABLET PO SCH (07:23)
[2018-12-12] MEDS: QUEtiapine 25 MG TABLET. PO SCH ×2 (07:24→17:40)
[2018-12-12] MEDS: busPIRone 5 MG TABLET. PO SCH ×3 (07:24→20:04)
[2018-12-12] MEDS: LISINOPRIL 10 MG TABLET PO SCH (07:24)
[2018-12-12] MEDS: SERTRALINE 50 MG TABLET. PO SCH (07:25)
[2018-12-12] MEDS: CHOLECALCIFEROL (VITAMIN D3) 1,000 UNIT TABLET PO SCH (07:25)
[2018-12-12] MEDS: CETIRIZINE HCL 10 MG TABLET PO SCH (07:25)
[2018-12-12] MEDS: FLUTICASONE 50MCG/NASAL SPRAY 16GM BOTTLE. NS SCH ×3 (07:29→20:04)
[2018-12-12] MEDS: LORazepam 0.5 MG TABLET PO SCH (07:29)
[2018-12-12] MEDS: traMADol 50 MG TABLET PO SCH ×2 (07:30→20:06)
[2018-12-12 15:47] VITALS: BP 159/68
[2018-12-12] MEDS: MIRTAZAPINE 7.5 MG TABLET. PO SCH (20:04)
--- NOTE | 2018-12-12 20:59 | PN ---
DATE: 12/11/2018 This is a late entry, date of service , covers the elements not covered in my initial note. SUBJECTIVE: I met with the patient on the evening of 12/11/2018. The patient had a very difficult night per nursing report. She did not sleep at all and at 7:00 a.m. in the morning, had to be on the floor in the quiet room due to her restlessness. She received Ativan, Zyprexa and Tylenol p.r.n. Slept through breakfast, refused some of her medications during the day, took some in chocolate pudding. White cells have been improved from 13.6-12.2, BUN is down as well. REVIEW OF SYSTEMS: Ambulation impaired, in wheelchair. No CV, , pulmonary, eye, ENT system symptoms on review. Reliability is poor. MENTAL STATUS EXAM: Oriented to herself. Insight, judgment, recent and remote memory, attention, concentration, fund of knowledge poor, consistent with her diagnosis mentioned in my initial note. PLAN: No change from initial note. MAN Rigo KIRBY MD DR: LUIS/kristen JOB#: [id number] / [id number]
--- NOTE | 2018-12-12 22:08 | PDOC ---
Exam Note: Bassam Note: Please also refer to the separate dictated note~for this date of service dictated separately.~Patient seen individually. Discussed the patient with Nursing staff reviewed the chart.~Reviewed interim history and current functioning. Reviewed vital signs,~Labs/ Radiology~and current medications noted below. Continue current treatment with the changes noted in the dictated addendum note Assessment: Vital Signs/I&O: Vital Signs Date Time Temp Pulse Resp B/P (MAP) Pulse Ox O2 Delivery O2 Flow Rate FiO2 12/12/18 21:06 18 94 Room Air 12/12/18 20:04 86 159/68 12/12/18 15:47 99.7 I & O 12/11/18 12/11/18 12/12/18 14:59 22:59 06:59 Intake Total 240 ml 480 ml Balance 240 ml 480 ml Current Medications: I have reviewed the current psychotropics carefully including drug interactions. Risk benefit ratio favors no change other than as noted in my dictated progress note. Diagnosis: Problems: (1) Anxiety disorder (2) Dementia, vascular, with delusions (3) Dementia, vascular, with depression (4) Dementia in Alzheimer's disease with delusions (5) Dementia in Alzheimer's disease with depression (6) Impulse control disorder LEIGH ANN KIRBY MD Dec 12, 2018 22:08
[2018-12-13 06:28] VITALS: BP 159/85
[2018-12-13] MEDS: CETIRIZINE HCL 10 MG TABLET PO SCH (08:24)
[2018-12-13] MEDS: LORazepam 0.5 MG TABLET PO SCH (08:24)
[2018-12-13] MEDS: traMADol 50 MG TABLET PO SCH ×2 (08:24→20:07)
[2018-12-13] MEDS: CHOLECALCIFEROL (VITAMIN D3) 1,000 UNIT TABLET PO SCH (08:24)
[2018-12-13] MEDS: SERTRALINE 50 MG TABLET. PO SCH (08:25)
[2018-12-13] MEDS: LISINOPRIL 10 MG TABLET PO SCH (08:25)
[2018-12-13] MEDS: busPIRone 5 MG TABLET. PO SCH ×3 (08:25→20:04)
[2018-12-13] MEDS: SPIRONOLACTONE 25 MG TABLET PO SCH (08:26)
[2018-12-13] MEDS: QUEtiapine 25 MG TABLET. PO SCH ×2 (08:26→18:32)
[2018-12-13 15:25] VITALS: BP 109/61
[2018-12-13] MEDS: MIRTAZAPINE 7.5 MG TABLET. PO SCH (20:04)
--- NOTE | 2018-12-13 22:10 | PDOC ---
Exam Note: Bassam Note: Please also refer to the separate dictated note~for this date of service dictated separately.~Patient seen individually. Discussed the patient with Nursing staff reviewed the chart.~Reviewed interim history and current functioning. Reviewed vital signs,~Labs/ Radiology~and current medications noted below. Continue current treatment with the changes noted in the dictated addendum note Assessment: Vital Signs/I&O: Vital Signs Date Time Temp Pulse Resp B/P (MAP) Pulse Ox O2 Delivery O2 Flow Rate FiO2 12/13/18 21:10 Room Air 12/13/18 20:04 71 109/61 12/13/18 15:25 98.9 16 95 I & O 12/12/18 12/12/18 12/13/18 14:59 22:59 06:59 Intake Total 240 ml 100 ml Balance 240 ml 100 ml Current Medications: I have reviewed the current psychotropics carefully including drug interactions. Risk benefit ratio favors no change other than as noted in my dictated progress note. Diagnosis: Problems: (1) Anxiety disorder (2) Dementia, vascular, with delusions (3) Dementia, vascular, with depression (4) Dementia in Alzheimer's disease with delusions (5) Dementia in Alzheimer's disease with depression (6) Impulse control disorder LEIGH ANN KIRBY MD Dec 13, 2018 22:10
--- NOTE | 2018-12-14 01:06 | PN ---
DATE: 12/12/2018 PSYCHIATRIC PROGRESS NOTE This late entry 12/12/2018 covers elements not covered in my initial note. SUBJECTIVE: I met with the patient on the evening of 12/12/2018. The patient slept 6-1/2 hours previous night. She got PRNs the previous evening after she was quite agitated during shower time. No PRNs during the day on 12/12/2018. She slept off and on during the day. She had to be in the quiet room previous night, slept through breakfast. UA is unremarkable. CBC, CMP have been completed. REVIEW OF SYSTEMS: Ambulation impaired, in wheelchair. No CV, , pulmonary, eye, ENT system symptoms on review. Reliability poor. MENTAL STATUS EXAM: Oriented to herself. Insight, judgment, recent and remote memory, attention, concentration, fund of knowledge poor, consistent with her diagnosis mentioned in my initial note. PLAN: No change from initial note and we will review the results of CBC and CMP. LEIGH ANN KIRBY MD DR: LUIS/kristen JOB#: [id number] / [id number]
[2018-12-14 06:13] VITALS: BP 135/70
[2018-12-14] MEDS: traMADol 50 MG TABLET PO SCH ×3 (07:52→19:40)
[2018-12-14] MEDS: SPIRONOLACTONE 25 MG TABLET PO SCH (07:53)
[2018-12-14] MEDS: QUEtiapine 25 MG TABLET. PO SCH ×2 (07:53→17:04)
[2018-12-14] MEDS: CHOLECALCIFEROL (VITAMIN D3) 1,000 UNIT TABLET PO SCH (07:54)
[2018-12-14] MEDS: LISINOPRIL 10 MG TABLET PO SCH ×2 (07:54→19:41)
[2018-12-14] MEDS: CETIRIZINE HCL 10 MG TABLET PO SCH (07:54)
[2018-12-14] MEDS: busPIRone 5 MG TABLET. PO SCH ×3 (07:55→19:43)
[2018-12-14] MEDS: SERTRALINE 50 MG TABLET. PO SCH (07:59)
[2018-12-14] MEDS: FLUTICASONE 50MCG/NASAL SPRAY 16GM BOTTLE. NS SCH (08:00)
[2018-12-14] MEDS ORDERED: traMADol 50 MG TABLET PO ONE (13:00)
[2018-12-14 15:52] VITALS: BP 117/53
[2018-12-14] MEDS: MIRTAZAPINE 7.5 MG TABLET. PO SCH (19:41)
--- NOTE | 2018-12-15 00:20 | PN ---
DATE: 12/13/2018 PSYCHIATRIC PROGRESS NOTE This is a late entry 12/13/2018 covers elements not covered in my initial note. SUBJECTIVE: I met with the patient in evening of 12/13/2018. The patient slept 6 hours previous night. She took her p.m. medications, but refused part of her a.m. medications and assessments. Little more cooperative as I met with her in the evening. REVIEW OF SYSTEMS: Ambulation impaired, in wheelchair. No CV, , pulmonary, eye, ENT system symptoms on review. Reliability poor. MENTAL STATUS EXAM: Oriented to herself. Insight, judgment, recent and remote memory, attention, concentration, fund of knowledge poor consistent with her diagnosis mentioned in my initial note. PLAN: No change from initial note, but we will increase Zoloft from 50 mg a day to 75 mg a day. MAN Rigo KIRBY MD DR: LUIS/kristen JOB#: [id number] / [id number]
[2018-12-15 06:11] VITALS: BP 153/61
[2018-12-15] MEDS: FLUTICASONE 50MCG/NASAL SPRAY 16GM BOTTLE. NS SCH (09:00)
--- NOTE | 2018-12-15 10:07 | PDOC ---
Exam Note: Bassam Note: Late entry for DOS 12/14/2018. Please also refer to the separate dictated note~for this date of service dictated separately.~Patient seen individually. Discussed the patient with Nursing staff reviewed the chart.~Reviewed interim history and current functioning. Reviewed vital signs,~Labs/ Radiology~and current medications noted below. Continue current treatment with the changes noted in the dictated addendum note Assessment: Vital Signs/I&O: Vital Signs Date Time Temp Pulse Resp B/P (MAP) Pulse Ox O2 Delivery O2 Flow Rate FiO2 12/15/18 06:11 99.0 80 14 153/61 (91) 93 Room Air I & O 12/14/18 12/14/18 12/15/18 14:59 22:59 06:59 Intake Total 480 ml 240 ml Balance 480 ml 240 ml Current Medications: Meds: Current Medications Medications (Trade) Dose Ordered Sig/Chilo Route PRN Reason Start Time Stop Time Status Last Admin Dose Admin Tramadol HCl (Ultram) 50 mg 1X ONCE PO 12/14/18 13:00 12/14/18 13:01 DC 12/14/18 13:00 I have reviewed the current psychotropics carefully including drug interactions. Risk benefit ratio favors no change other than as noted in my dictated progress note. Diagnosis: Problems: (1) Anxiety disorder (2) Dementia, vascular, with delusions (3) Dementia, vascular, with depression (4) Dementia in Alzheimer's disease with delusions (5) Dementia in Alzheimer's disease with depression (6) Impulse control disorder LEIGH ANN KIRBY MD Dec 15, 2018 10:07
[2018-12-15] MEDS: CETIRIZINE HCL 10 MG TABLET PO SCH (10:17)
[2018-12-15] MEDS: SERTRALINE 50 MG TABLET. PO SCH (10:17)
[2018-12-15] MEDS: CHOLECALCIFEROL (VITAMIN D3) 1,000 UNIT TABLET PO SCH (10:17)
[2018-12-15] MEDS: busPIRone 5 MG TABLET. PO SCH ×3 (10:17→19:25)
[2018-12-15] MEDS: traMADol 50 MG TABLET PO SCH ×2 (10:17→19:27)
[2018-12-15] MEDS: SPIRONOLACTONE 25 MG TABLET PO SCH (10:18)
[2018-12-15] MEDS: QUEtiapine 25 MG TABLET. PO SCH ×2 (10:18→17:15)
--- NOTE | 2018-12-15 13:11 | PN ---
DATE: 12/14/2018 PSYCHIATRIC PROGRESS NOTE This late entry 12/14/2018 covers elements not covered in my initial note. SUBJECTIVE: I met with the patient in the evening of 12/14/2018. The patient slept 4-1/2 hours previous night. She remains confused, less paranoid. REVIEW OF SYSTEMS: Ambulation impaired, in wheelchair. No CV, , pulmonary, eye, ENT system symptoms on review. MENTAL STATUS EXAM: Oriented to herself. Insight, judgment, recent and remote memory, attention, concentration, fund of knowledge poor, consistent with her diagnosis. The patient was also staffed at a treatment team meeting morning of 12/14/2018, then seen individually evening of 12/14/2018. LABORATORY DATA: Reviewed. IMPRESSION: Unchanged from initial note. PLAN: Increase Zoloft from 50 mg a day to 75 mg a day. Maintain Seroquel 12.5 b.i.d., BuSpar 5 mg t.i.d., Remeron 7.5 mg at bedtime. Continue rest unchanged. MAN Rigo KIRBY MD DR: LUIS/kristen JOB#: [id number] / [id number]
[2018-12-15 15:49] VITALS: BP 111/50
[2018-12-15] MEDS: MIRTAZAPINE 7.5 MG TABLET. PO SCH (19:25)
--- NOTE | 2018-12-15 22:14 | PDOC ---
Exam Note: Bassam Note: Please also refer to the separate dictated note~for this date of service dictated separately.~Patient seen individually. Discussed the patient with Nursing staff reviewed the chart.~Reviewed interim history and current functioning. Reviewed vital signs,~Labs/ Radiology~and current medications noted below. Continue current treatment with the changes noted in the dictated addendum note Assessment: Vital Signs/I&O: Vital Signs Date Time Temp Pulse Resp B/P (MAP) Pulse Ox O2 Delivery O2 Flow Rate FiO2 12/15/18 19:25 72 111/50 12/15/18 15:49 98.3 16 97 12/15/18 11:17 Room Air I & O 12/14/18 12/14/18 12/15/18 14:59 22:59 06:59 Intake Total 480 ml 240 ml Balance 480 ml 240 ml Current Medications: I have reviewed the current psychotropics carefully including drug interactions. Risk benefit ratio favors no change other than as noted in my dictated progress note. Diagnosis: Problems: (1) Anxiety disorder (2) Dementia, vascular, with delusions (3) Dementia, vascular, with depression (4) Dementia in Alzheimer's disease with delusions (5) Dementia in Alzheimer's disease with depression (6) Impulse control disorder LEIGH ANN KIRBY MD Dec 15, 2018 22:14
[2018-12-16 05:47] VITALS: BP 164/67
[2018-12-16] MEDS: SPIRONOLACTONE 25 MG TABLET PO SCH (07:26)
[2018-12-16] MEDS: busPIRone 5 MG TABLET. PO SCH ×3 (07:27→20:16)
[2018-12-16] MEDS: QUEtiapine 25 MG TABLET. PO SCH ×2 (07:29→16:31)
[2018-12-16] MEDS: SERTRALINE 50 MG TABLET. PO SCH (07:30)
[2018-12-16] MEDS: CETIRIZINE HCL 10 MG TABLET PO SCH (07:31)
[2018-12-16] MEDS: CHOLECALCIFEROL (VITAMIN D3) 1,000 UNIT TABLET PO SCH (07:32)
[2018-12-16] MEDS: LISINOPRIL 10 MG TABLET PO SCH (07:32)
[2018-12-16] MEDS: FLUTICASONE 50MCG/NASAL SPRAY 16GM BOTTLE. NS SCH ×2 (07:33→09:00)
[2018-12-16] MEDS: traMADol 50 MG TABLET PO SCH ×2 (07:36→20:16)
[2018-12-16 15:35] VITALS: BP 130/75
[2018-12-16] MEDS: MIRTAZAPINE 7.5 MG TABLET. PO SCH (20:17)
--- NOTE | 2018-12-16 22:35 | PDOC ---
Exam Note: Bassam Note: Please also refer to the separate dictated note~for this date of service dictated separately.~Patient seen individually. Discussed the patient with Nursing staff reviewed the chart.~Reviewed interim history and current functioning. Reviewed vital signs,~Labs/ Radiology~and current medications noted below. Continue current treatment with the changes noted in the dictated addendum note Assessment: Vital Signs/I&O: Vital Signs Date Time Temp Pulse Resp B/P (MAP) Pulse Ox O2 Delivery O2 Flow Rate FiO2 12/16/18 21:16 96 12/16/18 20:16 18 12/16/18 20:15 73 130/75 12/16/18 15:35 98.7 Room Air I & O 12/15/18 12/15/18 12/16/18 14:59 22:59 06:59 Intake Total 240 ml 120 ml Balance 240 ml 120 ml Current Medications: I have reviewed the current psychotropics carefully including drug interactions. Risk benefit ratio favors no change other than as noted in my dictated progress note. Diagnosis: Problems: (1) Anxiety disorder (2) Dementia, vascular, with delusions (3) Dementia, vascular, with depression (4) Dementia in Alzheimer's disease with delusions (5) Dementia in Alzheimer's disease with depression (6) Impulse control disorder LEIGH ANN KIRBY MD Dec 16, 2018 22:35
[2018-12-17 05:44] VITALS: BP 129/68
[2018-12-17 06:36] LABS: BASO # 0.1 x10^3/uL (0.0-0.2); BASO % 1 % (0-3); EOS # 0.9 x10^3/uL (0.0-0.7); EOS % 7 % (0-3); HEMATOCRIT 33.5 % (36.0-47.0); HEMOGLOBIN 10.9 g/dL (12.0-15.5); LYMPH # 3.6 x10^3/uL (1.0-4.8); LYMPH % 27 % (24-48); MEAN CORPUSCULAR HEMOGLOBIN 30 pg (25-35); MEAN CORPUSCULAR HGB CONC 33 g/dL (31-37); MEAN CORPUSCULAR VOLUME 91 fL (79-100); MONO # 1.5 x10^3/uL (0.0-1.1); MONO % 11 % (0-9); NEUT # 7.1 x10^3uL (1.8-7.7); NEUT % 54 % (31-73); PLATELET COUNT 336 x10^3/uL (140-400); RED BLOOD COUNT 3.67 x10^6/uL (3.50-5.40); RED CELL DISTRIBUTION WIDTH 14.1 % (11.5-14.5); WHITE BLOOD COUNT 13.1 x10^3/uL (4.0-11.0)
[2018-12-17 06:48] LABS: ALBUMIN 3.2 g/dL (3.4-5.0); ALBUMIN/GLOBULIN RATIO 0.9 (1.0-1.7); CALCIUM 9.3 mg/dL (8.5-10.1); CREATININE 0.7 mg/dL (0.6-1.0); GFR 79.3; POTASSIUM 4.2 mmol/L (3.5-5.1); TOTAL BILIRUBIN 0.4 mg/dL (0.2-1.0); TOTAL PROTEIN 6.6 g/dL (6.4-8.2)
[2018-12-17] MEDS: CETIRIZINE HCL 10 MG TABLET PO SCH (07:57)
[2018-12-17] MEDS: SPIRONOLACTONE 25 MG TABLET PO SCH (07:57)
[2018-12-17] MEDS: CHOLECALCIFEROL (VITAMIN D3) 1,000 UNIT TABLET PO SCH (07:57)
[2018-12-17] MEDS: busPIRone 5 MG TABLET. PO SCH ×3 (07:57→19:34)
[2018-12-17] MEDS: LISINOPRIL 10 MG TABLET PO SCH (07:58)
[2018-12-17] MEDS: SERTRALINE 50 MG TABLET. PO SCH (07:58)
[2018-12-17] MEDS: QUEtiapine 25 MG TABLET. PO SCH ×2 (08:00→17:23)
[2018-12-17] MEDS: traMADol 50 MG TABLET PO SCH ×2 (08:02→19:34)
[2018-12-17] MEDS: CYANOCOBALAMIN (VITAMIN B-12) 1,000 MCG/ML VIAL IM SCH ×2 (09:00→17:22)
[2018-12-17] MEDS: FLUTICASONE 50MCG/NASAL SPRAY 16GM BOTTLE. NS SCH (09:00)
--- NOTE | 2018-12-17 12:20 | PN ---
DATE: 12/15/2018 PSYCHIATRIC PROGRESS NOTE This late entry, 12/15/2018, covers elements not covered in my initial note. SUBJECTIVE: I met with the patient in the evening. Overall, the patient remains confused. She slept until about 10:30 in the morning and had slept 6-3/4 hours previous night. She has been calm and spending some time in the day room. REVIEW OF SYSTEMS: Ambulation impaired, in wheelchair. No CV, , pulmonary, eye, ENT system symptoms on review. Reliability poor. MENTAL STATUS EXAM: Oriented to herself. Insight, judgment, recent and remote memory, attention, concentration, fund of knowledge poor, consistent with her diagnosis mentioned in my initial note. PLAN: No change from initial note. MAN Rigo KIRBY MD DR: LUIS/kristen JOB#: [id number] / [id number]
[2018-12-17 15:58] VITALS: BP 130/63
[2018-12-17] MEDS: MIRTAZAPINE 7.5 MG TABLET. PO SCH (19:34)
[2018-12-17] MEDS ORDERED: QUEtiapine 25 MG TABLET. PO SCH (21:00)
--- NOTE | 2018-12-17 22:12 | PDOC ---
Exam Note: Bassam Note: Please also refer to the separate dictated note~for this date of service dictated separately.~Patient seen individually. Discussed the patient with Nursing staff reviewed the chart.~Reviewed interim history and current functioning. Reviewed vital signs,~Labs/ Radiology~and current medications noted below. Continue current treatment with the changes noted in the dictated addendum note Assessment: Vital Signs/I&O: Vital Signs Date Time Temp Pulse Resp B/P (MAP) Pulse Ox O2 Delivery O2 Flow Rate FiO2 12/17/18 20:35 95 12/17/18 19:34 78 130/63 12/17/18 15:58 98.7 16 12/17/18 11:31 Room Air I & O 12/16/18 12/16/18 12/17/18 14:59 22:59 06:59 Intake Total 660 ml 240 ml 120 ml Balance 660 ml 240 ml 120 ml Labs: Laboratory Tests Test 12/17/18 06:19 White Blood Count 13.1 x10^3/uL (4.0-11.0) H Red Blood Count 3.67 x10^6/uL (3.50-5.40) Hemoglobin 10.9 g/dL (12.0-15.5) L Hematocrit 33.5 % (36.0-47.0) L Mean Corpuscular Volume 91 fL (79-100) Mean Corpuscular Hemoglobin 30 pg (25-35) Mean Corpuscular Hemoglobin Concent 33 g/dL (31-37) Red Cell Distribution Width 14.1 % (11.5-14.5) Platelet Count 336 x10^3/uL (140-400) Neutrophils (%) (Auto) 54 % (31-73) Lymphocytes (%) (Auto) 27 % (24-48) Monocytes (%) (Auto) 11 % (0-9) H Eosinophils (%) (Auto) 7 % (0-3) H Basophils (%) (Auto) 1 % (0-3) Neutrophils # (Auto) 7.1 x10^3uL (1.8-7.7) Lymphocytes # (Auto) 3.6 x10^3/uL (1.0-4.8) Monocytes # (Auto) 1.5 x10^3/uL (0.0-1.1) H Eosinophils # (Auto) 0.9 x10^3/uL (0.0-0.7) H Basophils # (Auto) 0.1 x10^3/uL (0.0-0.2) Sodium Level 138 mmol/L (136-145) Potassium Level 4.2 mmol/L (3.5-5.1) Chloride Level 102 mmol/L (98-107) Carbon Dioxide Level 27 mmol/L (21-32) Anion Gap 9 (6-14) Blood Urea Nitrogen 26 mg/dL (7-20) H Creatinine 0.7 mg/dL (0.6-1.0) Estimated GFR (Cockcroft-Gault) 79.3 BUN/Creatinine Ratio 37 (6-20) H Glucose Level 92 mg/dL (70-99) Calcium Level 9.3 mg/dL (8.5-10.1) Total Bilirubin 0.4 mg/dL (0.2-1.0) Aspartate Amino Transferase (AST) 11 U/L (15-37) L Alanine Aminotransferase (ALT) 12 U/L (14-59) L Alkaline Phosphatase 51 U/L (46-116) Total Protein 6.6 g/dL (6.4-8.2) Albumin 3.2 g/dL (3.4-5.0) L Albumin/Globulin Ratio 0.9 (1.0-1.7) L Current Medications: Meds: Current Medications Medications (Trade) Dose Ordered Sig/Chilo Route PRN Reason Start Time Stop Time Status Last Admin Dose Admin Cyanocobalamin (Vitamin B-12) 1,000 mcg QSU IM 12/17/18 09:00 01/07/19 23:50 12/17/18 17:22 Quetiapine Fumarate (SEROquel) 25 mg 1700 PO 12/17/18 17:00 12/17/18 17:23 Quetiapine Fumarate (SEROquel) 12.5 mg 0900 PO 12/17/18 09:00 12/17/18 08:00 I have reviewed the current psychotropics carefully including drug interactions. Risk benefit ratio favors no change other than as noted in my dictated progress note. Diagnosis: Problems: (1) Anxiety disorder (2) Dementia, vascular, with delusions (3) Dementia, vascular, with depression (4) Dementia in Alzheimer's disease with delusions (5) Dementia in Alzheimer's disease with depression (6) Impulse control disorder LEIGH ANN KIRBY MD Dec 17, 2018 22:12
[2018-12-18 05:55] VITALS: BP 134/66
[2018-12-18] MEDS: SPIRONOLACTONE 25 MG TABLET PO SCH (07:46)
[2018-12-18] MEDS: CHOLECALCIFEROL (VITAMIN D3) 1,000 UNIT TABLET PO SCH (07:46)
[2018-12-18] MEDS: CETIRIZINE HCL 10 MG TABLET PO SCH (07:46)
[2018-12-18] MEDS: QUEtiapine 25 MG TABLET. PO SCH ×2 (07:47→17:20)
[2018-12-18] MEDS: SERTRALINE 50 MG TABLET. PO SCH (07:47)
[2018-12-18] MEDS: busPIRone 5 MG TABLET. PO SCH ×3 (07:47→19:38)
[2018-12-18] MEDS: LISINOPRIL 10 MG TABLET PO SCH (07:48)
[2018-12-18] MEDS: CHOLECALCIFEROL (VITAMIN D3) 50,000 UNIT CAPSULE PO SCH (07:51)
[2018-12-18] MEDS: traMADol 50 MG TABLET PO SCH ×2 (07:52→19:39)
[2018-12-18] MEDS: FLUTICASONE 50MCG/NASAL SPRAY 16GM BOTTLE. NS SCH (08:15)
[2018-12-18] MEDS ORDERED: CYANOCOBALAMIN (VITAMIN B-12) 1,000 MCG/ML VIAL IM SCH (16:00)
[2018-12-18 16:01] VITALS: BP 108/58
[2018-12-18] MEDS: MIRTAZAPINE 7.5 MG TABLET. PO SCH (19:38)
[2018-12-18 19:43] VITALS: BP 100/49
[2018-12-18] MEDS ORDERED: traZODone 50 MG TABLET. PO PRN (20:00)
--- NOTE | 2018-12-18 22:17 | PDOC ---
Exam Note: Bassam Note: Please also refer to the separate dictated note~for this date of service dictated separately.~Patient seen individually. Discussed the patient with Nursing staff reviewed the chart.~Reviewed interim history and current functioning. Reviewed vital signs,~Labs/ Radiology~and current medications noted below. Continue current treatment with the changes noted in the dictated addendum note Assessment: Vital Signs/I&O: Vital Signs Date Time Temp Pulse Resp B/P (MAP) Pulse Ox O2 Delivery O2 Flow Rate FiO2 12/18/18 22:04 96 12/18/18 19:44 77 100/49 12/18/18 16:01 98.1 16 12/18/18 12:15 Room Air I & O 12/17/18 12/17/18 12/18/18 15:00 23:00 07:00 Intake Total 720 ml 360 ml Balance 720 ml 360 ml Current Medications: Meds: Current Medications Medications (Trade) Dose Ordered Sig/Chilo Route PRN Reason Start Time Stop Time Status Last Admin Dose Admin Trazodone HCl (Desyrel) 25 mg PRN QHS PRN PO INSOMNIA, MAY REPEAT X1 12/18/18 20:00 12/18/18 20:23 I have reviewed the current psychotropics carefully including drug interactions. Risk benefit ratio favors no change other than as noted in my dictated progress note. Diagnosis: Problems: (1) Anxiety disorder (2) Dementia, vascular, with delusions (3) Dementia, vascular, with depression (4) Dementia in Alzheimer's disease with delusions (5) Dementia in Alzheimer's disease with depression (6) Impulse control disorder LEIGH ANN KIRBY MD Dec 18, 2018 22:17
--- NOTE | 2018-12-19 00:12 | PN ---
DATE: 12/16/2018 PSYCHIATRIC PROGRESS NOTE This late entry 12/16/2018 covers elements not covered in my initial note. SUBJECTIVE: I met with the patient in the evening of 12/16/2018. The patient slept 7-1/2 hours previous night. The patient remains confused, but somewhat suspicious, takes her medications when they are hidden. REVIEW OF SYSTEMS: No CV, , pulmonary, eye, ENT system symptoms on review. Gait unsteady in wheelchair. Reliability poor. MENTAL STATUS EXAM: Oriented to herself. Insight, judgment, recent and remote memory, attention, concentration, fund of knowledge poor, consistent with her diagnosis mentioned in my initial note. PLAN: Increase the Seroquel 12.5 mg b.i.d. to 12.5 mg in the morning and 25 at 1700 hours. Continue rest, unchanged for now. MAN Rigo KIRBY MD DR: LUIS/kristen JOB#: [id number] / [id number]
[2018-12-19 06:17] VITALS: BP 175/75
[2018-12-19] MEDS: LISINOPRIL 10 MG TABLET PO SCH (06:39)
[2018-12-19] MEDS: CHOLECALCIFEROL (VITAMIN D3) 1,000 UNIT TABLET PO SCH (12:16)
[2018-12-19] MEDS: busPIRone 5 MG TABLET. PO SCH ×3 (12:16→19:50)
[2018-12-19] MEDS: SERTRALINE 50 MG TABLET. PO SCH (12:17)
[2018-12-19] MEDS: QUEtiapine 25 MG TABLET. PO SCH ×2 (12:17→17:22)
[2018-12-19] MEDS: SPIRONOLACTONE 25 MG TABLET PO SCH (12:17)
[2018-12-19] MEDS: CETIRIZINE HCL 10 MG TABLET PO SCH (12:17)
[2018-12-19] MEDS: traMADol 50 MG TABLET PO SCH ×2 (12:19→19:56)
[2018-12-19] MEDS: FLUTICASONE 50MCG/NASAL SPRAY 16GM BOTTLE. NS SCH (12:20)
[2018-12-19 16:02] VITALS: BP 109/65
[2018-12-19] MEDS: MIRTAZAPINE 7.5 MG TABLET. PO SCH (19:50)
--- NOTE | 2018-12-19 22:05 | PDOC ---
Exam Note: Bassam Note: Please also refer to the separate dictated note~for this date of service dictated separately.~Patient seen individually. Discussed the patient with Nursing staff reviewed the chart.~Reviewed interim history and current functioning. Reviewed vital signs,~Labs/ Radiology~and current medications noted below. Continue current treatment with the changes noted in the dictated addendum note Assessment: Vital Signs/I&O: Vital Signs Date Time Temp Pulse Resp B/P (MAP) Pulse Ox O2 Delivery O2 Flow Rate FiO2 12/19/18 20:56 18 Room Air 12/19/18 19:56 77 105/56 12/19/18 16:02 97.8 96 I & O 12/18/18 12/18/18 12/19/18 14:59 22:59 06:59 Intake Total 360 ml 320 ml Balance 360 ml 320 ml Current Medications: I have reviewed the current psychotropics carefully including drug interactions. Risk benefit ratio favors no change other than as noted in my dictated progress note. Diagnosis: Problems: (1) Anxiety disorder (2) Dementia, vascular, with delusions (3) Dementia, vascular, with depression (4) Dementia in Alzheimer's disease with delusions (5) Dementia in Alzheimer's disease with depression (6) Impulse control disorder LEIGH ANN KIRBY MD Dec 19, 2018 22:05
--- NOTE | 2018-12-20 05:11 | PN ---
DATE: 12/17/2018 PSYCHIATRIC PROGRESS NOTE This late entry 12/17/2018 covers elements not covered in my initial note. SUBJECTIVE: I met with the patient in the evening of 12/17/2018. The patient slept 6-1/2 hours previous night. At night, she was smiling more cooperative during the day, still confused, cooperative with dressing changes. REVIEW OF SYSTEMS: Ambulation impaired, in wheelchair. No CV, , pulmonary, eye, ENT system symptoms on review. Reliability poor. MENTAL STATUS EXAM: Oriented to herself. Insight, judgment, recent and remote memory, attention, concentration, fund of knowledge poor, consistent with her diagnosis mentioned in my initial note. PLAN: No change from initial note. MAN Rigo KIRBY MD DR: LUIS/kristen JOB#: [id number] / [id number]
--- NOTE | 2018-12-20 05:13 | PN ---
DATE: 12/18/2018 PSYCHIATRIC PROGRESS NOTE This late entry 12/18/2018 covers the elements not covered in my initial note. SUBJECTIVE: I met with the patient in the evening of 12/18/2018. The patient slept 4-1/2 hours previous night. Overall, she has had a good day, more compliant with treatment. Still remains confused. REVIEW OF SYSTEMS: Ambulation impaired, in wheelchair. No CV, , pulmonary, eye, ENT system symptoms on review. Reliability poor. MENTAL STATUS EXAM: Oriented to herself. Insight, judgment, recent and remote memory, attention, concentration, fund of knowledge poor, consistent with her diagnosis mentioned in my initial note. PLAN: No change from initial note and start trazodone 25 mg at bedtime p.r.n. insomnia, may repeat x 1. Rest unchanged from admission. MAN Rigo KIRBY MD DR: LUIS/kristen JOB#: [id number] / [id number]
[2018-12-20 06:28] VITALS: BP 158/76
[2018-12-20] MEDS: LISINOPRIL 10 MG TABLET PO SCH (07:45)
[2018-12-20] MEDS: SPIRONOLACTONE 25 MG TABLET PO SCH (07:45)
[2018-12-20] MEDS: busPIRone 5 MG TABLET. PO SCH ×3 (07:45→19:16)
[2018-12-20] MEDS: QUEtiapine 25 MG TABLET. PO SCH ×2 (07:46→16:10)
[2018-12-20] MEDS: CETIRIZINE HCL 10 MG TABLET PO SCH (07:46)
[2018-12-20] MEDS: CHOLECALCIFEROL (VITAMIN D3) 1,000 UNIT TABLET PO SCH (07:46)
[2018-12-20] MEDS: traMADol 50 MG TABLET PO SCH ×2 (08:04→19:19)
[2018-12-20] MEDS: FLUTICASONE 50MCG/NASAL SPRAY 16GM BOTTLE. NS SCH (08:04)
[2018-12-20] MEDS: SERTRALINE 50 MG TABLET. PO SCH (08:04)
[2018-12-20 15:30] VITALS: BP 160/70
[2018-12-20] MEDS: MIRTAZAPINE 7.5 MG TABLET. PO SCH (19:15)
--- NOTE | 2018-12-20 22:07 | PDOC ---
Exam Note: Bassam Note: Please also refer to the separate dictated note~for this date of service dictated separately.~Patient seen individually. Discussed the patient with Nursing staff reviewed the chart.~Reviewed interim history and current functioning. Reviewed vital signs,~Labs/ Radiology~and current medications noted below. Continue current treatment with the changes noted in the dictated addendum note Assessment: Vital Signs/I&O: Vital Signs Date Time Temp Pulse Resp B/P (MAP) Pulse Ox O2 Delivery O2 Flow Rate FiO2 12/20/18 19:19 18 Room Air 12/20/18 19:16 84 160/70 12/20/18 15:30 96.9 95 I & O 12/19/18 12/19/18 12/20/18 14:59 22:59 06:59 Intake Total 240 ml 240 ml 100 ml Balance 240 ml 240 ml 100 ml Current Medications: I have reviewed the current psychotropics carefully including drug interactions. Risk benefit ratio favors no change other than as noted in my dictated progress note. Diagnosis: Problems: (1) Major neurocognitive disorder (2) Anxiety disorder (3) Dementia, vascular, with delusions (4) Dementia, vascular, with depression (5) Dementia in Alzheimer's disease with delusions (6) Dementia in Alzheimer's disease with depression (7) Impulse control disorder LEIGH ANN KIRBY MD Dec 20, 2018 22:07
--- NOTE | 2018-12-20 23:28 | PN ---
DATE: 12/19/2018 PSYCHIATRIC PROGRESS NOTE This late entry, 12/19, covers elements not covered in my initial note. SUBJECTIVE: I met with the patient evening of 12/19. The patient slept 6-3/4 hours previous night. She slept late in the morning, did get up for breakfast. Remains confused, but not aggressive. REVIEW OF SYSTEMS: No CV, , pulmonary, eye, ENT system symptoms on review. Gait unsteady in wheelchair. MENTAL STATUS EXAM: Oriented to herself. Insight, judgment, recent and remote memory, attention, concentration, fund of knowledge poor, consistent with her diagnosis mentioned in my initial note. PLAN: No change from initial note. MAN Rigo KIRBY MD DR: LUIS/kristen JOB#: [id number] / [id number]
[2018-12-21] MEDS ORDERED: CETI10TA16 PO (05:02)
[2018-12-21] MEDS ORDERED: METH29OI TP (05:03)
[2018-12-21] MEDS ORDERED: MIRT15TA3 PO (05:05)
[2018-12-21] MEDS ORDERED: SERT50TA PO (05:05)
[2018-12-21] MEDS ORDERED: TRAZ-120 PO (05:06)
[2018-12-21] MEDS ORDERED: OLAN5TAB5 PO (05:07)
[2018-12-21] MEDS ORDERED: QUET25TA5 PO (05:08)
[2018-12-21] MEDS ORDERED: QUET25TA PO (05:08)
[2018-12-21] MEDS ORDERED: FLUT16SP21 NS (05:12)
[2018-12-21] MEDS ORDERED: MAGN400O7 PO (05:13)
[2018-12-21] MEDS ORDERED: MAG30ORA2 PO (05:13)
[2018-12-21] MEDS ORDERED: ONDA4TAB11 PO (05:15)
[2018-12-21 05:58] VITALS: BP 161/67
[2018-12-21] MEDS: FLUTICASONE 50MCG/NASAL SPRAY 16GM BOTTLE. NS SCH (07:54)
[2018-12-21] MEDS: busPIRone 5 MG TABLET. PO SCH (07:55)
[2018-12-21] MEDS: SPIRONOLACTONE 25 MG TABLET PO SCH (07:55)
[2018-12-21 07:56] VITALS: BP 161/67
[2018-12-21] MEDS: CHOLECALCIFEROL (VITAMIN D3) 1,000 UNIT TABLET PO SCH (07:56)
[2018-12-21] MEDS: LISINOPRIL 10 MG TABLET PO SCH (07:56)
[2018-12-21] MEDS: SERTRALINE 50 MG TABLET. PO SCH (07:56)
[2018-12-21] MEDS: QUEtiapine 25 MG TABLET. PO SCH (07:56)
[2018-12-21] MEDS: CETIRIZINE HCL 10 MG TABLET PO SCH (07:56)
[2018-12-21] MEDS: traMADol 50 MG TABLET PO SCH (08:28)
--- NOTE | 2018-12-21 22:34 | PDOC ---
Exam Note: Bassam Note: Please also refer to the separate dictated note~for this date of service dictated separately.~Patient seen individually. Discussed the patient with Nursing staff reviewed the chart.~Reviewed interim history and current functioning. Reviewed vital signs,~Labs/ Radiology~and current medications noted below. Continue current treatment with the changes noted in the dictated addendum note Assessment: Vital Signs/I&O: Vital Signs Date Time Temp Pulse Resp B/P (MAP) Pulse Ox O2 Delivery O2 Flow Rate FiO2 12/21/18 09:28 18 12/21/18 07:56 84 161/67 12/21/18 05:58 99.1 95 Room Air I & O 12/20/18 12/20/18 12/21/18 15:00 23:00 07:00 Intake Total 720 ml 240 ml Balance 720 ml 240 ml Current Medications: I have reviewed the current psychotropics carefully including drug interactions. Risk benefit ratio favors no change other than as noted in my dictated progress note. Diagnosis: Problems: (1) Anxiety disorder (2) Dementia, vascular, with delusions (3) Dementia, vascular, with depression (4) Dementia in Alzheimer's disease with delusions (5) Dementia in Alzheimer's disease with depression (6) Impulse control disorder (7) Major neurocognitive disorder LEIGH ANN KIRBY MD Dec 21, 2018 22:34
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
--- NOTE | 2018-12-22 11:36 | PN ---
DATE: 12/20/2018 PSYCHIATRIC PROGRESS NOTE This late entry 12/20/2018 covers elements not covered in my initial note. SUBJECTIVE: I met with the patient in the evening of 12/20/2018. The patient slept 7-1/4 hours previous night. The patient remains confused, but pleasant, cooperative, compliant with medications, attending groups, though she is oblivious of what is discussed there. REVIEW OF SYSTEMS: No CV, , pulmonary, eye, ENT system symptoms on review. Ambulation impaired, in wheelchair. Reliability poor. MENTAL STATUS EXAM: Oriented to herself. Insight, judgment, recent and remote memory, attention, concentration, fund of knowledge poor, consistent with her diagnosis mentioned in my initial note. PLAN: No change from initial note with possible discharge on 12/22/2018. MAN Rigo KIRBY MD DR: LUIS/kristen JOB#: [id number] / [id number]
[2019-02-18] MEDS ORDERED: CYANOCOBALAMIN (VITAMIN B-12) 1,000 MCG/ML VIAL IM SCH (09:00)
== END 2018-12-21 10:30 | DRG 57 ==
LOC: GEROPSY 16:17
PROVIDERS: ADMIT Psychiatry & Neurology Psychiatry; ATTEND Psychiatry & Neurology Psychiatry
DX: G30.9 Alzheimer's disease, unspecified (principal); F02.81 Dementia in other diseases classified elsewhere, unspecified severity, with behavioral disturbance; F01.51 Vascular dementia, unspecified severity, with behavioral disturbance; E78.5 Hyperlipidemia, unspecified; F10.20 Alcohol dependence, uncomplicated; F32.9 Major depressive disorder, single episode, unspecified; F41.9 Anxiety disorder, unspecified; F63.9 Impulse disorder, unspecified; I10 Essential (primary) hypertension; I25.10 Atherosclerotic heart disease of native coronary artery without angina pectoris; R29.6 Repeated falls; Z66 Do not resuscitate; Z79.899 Other long term (current) drug therapy; Z91.81 History of falling; I25.2 Old myocardial infarction; Z95.0 Presence of cardiac pacemaker; Z99.3 Dependence on wheelchair; Z91.83 Wandering in diseases classified elsewhere
CPT/HCPCS: 36415; 70450; 74018; 80048; 80053; 80061; 81001; 82306; 83036; 83540; 83550; 83615; 83735; 83880; 84436; 84443; 84480; 85025; 86592; 93005; J3420